=== PATIENT | female | born 1990 | race Two or more races ===

== ENCOUNTER 2024-11-22 05:27 | Emergency (ER) | payer MEDICAID, SELFPAY ==
[2024-11-22 05:27] VITALS: BMI 29.0
[2024-11-22 05:38] VITALS: BP 154/82; PULSE 104; RESP 18; TEMP 36.9; O2SAT 99
--- NOTE | 2024-11-22 05:48 | XR_ITS ---
Examination: OB Transvaginal ultrasound of the pelvis, complete Technique: Transvaginal sonographic images pelvis performed using mcbride scale imaging Exam date and time: November 22, 2024 at 0721 hrs. Indications: Pelvic pain this week Findings: Uterus 8.3 cm pole 0.8 cm corresponding to 6 week 6 day gestational age No cardiac motion. Right ovary 2.9 cm arterial flow Left ovary 3.2 cm arterial flow Impression: Intrauterine gestation corresponding to 6 week 6 day gestational age No cardiac activity, recommend short-term follow-up to exclude demise
--- NOTE | 2024-11-22 05:48 | PD.EDRME ---
Rapid Medical Screening Exam [facility] Arrival date/time: 11/22/24 05:27 33F at approximately 7 weeks and with no significant PMH presents to ED with 1 day of pelvic pain/cramping, but denies N/V, dysuria/hematuria, diarrhea, and vaginal bleeding. Chief Complaint: Abdominal Pain Vital signs: Vital Signs Temperature 98.4 F 11/22/24 05:38 Pulse Rate 104 H 11/22/24 05:38 Respiratory Rate 18 11/22/24 05:38 Blood Pressure 154/82 H 11/22/24 05:38 Pulse Oximetry (%) 99 11/22/24 05:38 Oxygen Delivery Method Room Air 11/22/24 05:38
[2024-11-22 06:20] LABS: Basophils # (Auto) 0.1 Thou/mm3 (0.0-0.2); Basophils % (Auto) 0 % (0-2.5); Eosinophils # (Auto) 0.1 Thou/mm3 (0.0-0.5); Eosinophils % (Auto) 1 % (0-10); Hematocrit 34.9 % (36.0-46.0); Hemoglobin 12.3 g/dL (12.0-16.0); Immature Granulocytes % (Auto) 0 % (0-0); Immature Granulocytes Auto 0.03 Thou/mm3 (0.00-0.00); Lymphocytes # (Auto) 3.9 Thou/mm3 (1.0-4.8); Lymphocytes % (Auto) 34 % (10-50); Mean Corpuscular HGB Conc 35.2 g/dl (31.0-37.0); Mean Corpuscular Hemoglobin 31.5 pg (25.0-35.0); Mean Corpuscular Volume 90 fL (80-100); Monocytes # (Auto) 0.9 Thou/mm3 (0.0-0.8); Monocytes % (Auto) 8 % (0-12); Neutrophils # (Auto) 6.3 Thou/mm3 (1.8-7.7); Neutrophils % (Auto) 56 % (37-80); Nucleated Red Blood Cell % 0 /100 WBC (0); Platelet Count 220 Thou/mm3 (140-440); RDW Standard Deviation 39.2 fL (36.4-46.3); White Blood Count 11.3 Thou/mm3 (3.6-11.0)
[2024-11-22 06:41] LABS: Alanine Aminotransferase 16 U/L (10-49); Albumin, Serum 4.1 gm/dL (3.5-5.0); Albumin/Globulin Ratio 1.5 (1.2-2.2); Alkaline Phosphatase 72 U/L (46-116); Anion Gap 7 (7-16); Aspartate Amino Transferase 12 U/L (0-34); BUN/Creatinine Ratio 17 Ratio (12-20); Bilirubin,Total 0.4 mg/dL (0.3-1.2); Blood Urea Nitrogen 12 mg/dL (9-23); Calcium 8.9 mg/dL (8.3-10.6); Calcium (Corrected) 8.9 mg/dL (8.5-10.1); Chloride 105 mMol/L (98-107); Creatinine (Component) 0.7 mg/dL (0.6-1.3); Estimated Creatinine Clearance 124.3 mL/min (>60); Globulin 2.8 gm/dL (2.3-3.5); Glucose 261 mg/dL (74-106); Osmolality,Calculated 284 (275-295); Potassium 3.9 mMol/L (3.4-5.1); Sodium 138 mMol/L (136-145); Total Protein 6.9 gm/dL (5.7-8.2); eGFR > 60 See Note
[2024-11-22 07:12] LABS: Collection Type, Urine Clean Catch
[2024-11-22 07:22] LABS: Beta HCG,Quantitative 28770 mIU/mL (<5.0)
[2024-11-22 07:29] LABS: Bacteria,Urine Rare; Bilirubin,Urine Negative (Negative); Blood,Urine Negative (Negative); Clarity,Urine Clear (Clear/Hazy); Color,Urine Lt-Yellow (Lt Yel-Yel); Glucose, Urine 4+ (Negative); Ketones,Urine Negative (Negative); Leukocyte Esterase,Urine Positive (Negative); Nitrite,Urine Negative (Negative); Protein,Urine Negative (Neg - Trace); RBC,Urine 7 /hpf (0-3); Specific Gravity,Urine 1.042 (1.001-1.035); Squamous Epithelial Cell,Urine 2 /hpf (0-5); Urobilinogen,Urine Negative mg/dL (0.0-1.0); WBC,Urine 11 /hpf (0-5)
[2024-11-22 07:50] VITALS: BP 120/79; PULSE 111; RESP 19; TEMP 36.7; O2SAT 96
--- NOTE | 2024-11-22 09:08 | EDNOTE_ITS ---
ED Female Urogenital RME/HPI General Chief complaint: Abdominal Pain Stated complaint: ABD PAIN 7 WEEKS PREG Time Seen by Provider: 11/22/24 06:16 Arrival date/time: 11/22/24 05:27 33F at approximately 7 weeks and with no significant PMH presents to ED with 1 day of pelvic pain/cramping, but denies N/V, dysuria/hematuria, diarrhea, and vaginal bleeding. Limitations: no limitations RME / HPI RME / HPI Narrative: 11/22/24 05:27 33F at approximately 7 weeks and with no significant PMH presents to ED with 1 day of pelvic pain/cramping, but denies N/V, dysuria/hematuria, diarrhea, and vaginal bleeding. Related Data Previous Rx's ?Medication ?Instructions ?Recorded cephalexin 500 mg capsule 500 mg PO BID 7 days #14 cap s 11/22/24 Allergies Allergy/AdvReac Type Severity Reaction Status Date / Time No Known Allergies Allergy Unknown Unverified 05/01/09 17:24 Review of Systems Review of Systems Systems Reviewed: All systems reviewed, normal except as documented Constitutional Constitutional: Reports system reviewed and no additional complaints, except as documented, Denies fever(s) and Denies headache(s) Eyes Eyes: Reports system reviewed and no additional complaints, except as documented and Denies blurry vision ENT Ears, Nose, Mouth, and Throat: Reports system reviewed and no additional complaints, except as documented, Denies headache(s), Denies nasal congestion and Denies nasal discharge Cardiovascular Cardiovascular: Reports system reviewed and no additional complaints, except as documented, Denies chest pain and Denies dyspnea Respiratory Respiratory: Reports system reviewed and no additional complaints, except as documented, Denies chest congestion, Denies cough and Denies dyspnea Gastrointestinal Gastrointestinal: Reports system reviewed and no additional complaints, except as documented and Denies abdominal pain Genitourinary Genitourinary: Reports system reviewed and no additional complaints, except as documented, Denies abnormal vaginal bleeding and Reports pelvic pain Integumentary/Breasts Skin/Breast: Reports system reviewed and no additional complaints, except as documented and Denies rash Neurologic Neurologic: Reports system reviewed and no additional complaints, except as documented, Reports as per HPI and Denies headache(s) Past Medical History Social History SMOKING STATUS: Never smoker ED Exam General Limitations: Present no limitations General appearance: Present alert and in no apparent distress Head Head exam: Present atraumatic Eye Eye exam: Present normal appearance, PERRL and EOMI ENT ENT exam: Present normal exam, normal oropharynx and mucous membranes moist Neck Neck exam: Present normal inspection, full ROM and trachea midline Chest Chest inspection: Present normal inspection and symmetric chest wall rise Respiratory Respiratory exam: Present normal lung sounds bilaterally Cardiovascular Cardiovascular exam: Present regular rate, normal rhythm and normal heart sounds Abdominal Exam Abdominal exam: Present soft and normal bowel sounds Extremities Exam Extremities exam: Present normal inspection and full ROM Back Exam Back exam: Present normal inspection and full ROM Neurological Exam Neurological exam: Present alert, oriented X3 and CN II-XII intact Psychiatric Psychiatric exam: Present normal affect and normal mood Skin Skin exam: Present warm, dry, intact and normal color Course Quality Measures none Orders Category Date Time Status US OB transvaginal Stat Exams 11/22/24 05:48 Taken Beta HCG,Quantitative Stat Lab 11/22/24 06:10 Completed CBC Stat Lab 11/22/24 06:10 Completed CMP [Comprehensive Metabolic Panel] Stat Lab 11/22/24 06:10 Completed UA [Urinalysis] Stat Lab 11/22/24 06:30 Completed Urine Culture Stat Lab 11/22/24 06:30 Received Vital Signs Vital signs: Vital Signs Temperature 98.4 F 11/22/24 05:38 Pulse Rate 104 H 11/22/24 05:38 Respiratory Rate 18 11/22/24 05:38 Blood Pressure 154/82 H 11/22/24 05:38 Pulse Oximetry (%) 99 11/22/24 05:38 Oxygen Delivery Method Room Air 11/22/24 05:38 O2 saturation 99% room air within normal limits Urogenital - Female MDM Narrative MDM Narrative:: 33F at approximately 7 weeks and with no significant PMH presents to ED with 1 day of pelvic pain/cramping, but denies N/V, dysuria/hematuria, diarrhea, and vaginal bleeding. On exam patient well-appearing patient does not appear ill or toxic in no acute distress On exam patient has soft nontender abdomen I reviewed the patient's lab work as well as ultrasound Patient's ultrasound is not very reassuring for a viable as the patient has no heart tones and patient is measuring approximately 7 weeks I did explain to the patient I cannot definitively say that she is having a miscarriage but she needs to have repeat lab work and ultrasound in 3 to 4 days Patient appears to have a mild UTI patient will treat with course of antibiotics in the meantime Patient data External records reviewed:: [facility] [place] previous records Clinical information provided by:: patient Social determinants that could affect healthcare access:: none Patient has the following chronic illnesses:: Diabetes How is presenting disease/condition affected by chronic disease/condition?: uneffected by Evaluation data The following diagnostics were reviewed and interpreted by me:: lab results and radiology exam(s) Lab and/or radiology exams considered but not ordered:: Labs radiology obtain Interpretation Summary: Reviewed by me Medications / Prescriptions Medications or Prescriptions considered but not ordered:: Given Medication administrations:: Given Consultations Consultation(s) initiated? (list below): No Diagnosis Urogenital Female Differential Diagnosis: urinary tract infection, bacterial vaginosis and cystitis Most likely diagnosis given after review of the tests above:: UTI threatened Admission Indicated Admission indicated?: not indicated Admission Request Was there a request for admission?: No Disposition Plan Disposition Plan: Discharge Discharge Attestation Discharge Attestation: The patient and all family members were given an opportunity to ask questions and understood the discharge instructions. Discharge instructions specifically effects, indications for sooner follow up or return to the emergency department, and the expected course of current diagnosis. Patient condition: Stable Discharge Plan Plan Patient Disposition: HOME (Self Care) Disposition Comment: Stable Prescriptions/Referrals Prescriptions/Med Rec: New cephalexin 500 mg capsule 500 mg PO BID 7 Days Qty: 14 0RF Referrals: Salazar Mcguire MD [Primary Care Provider] - 11/25/24 Problem List Clinical Impression: , threatened, UTI (urinary tract infection) Patient/Caregiver Discharge Instructions Additional Instructions: Please follow-up with [facility] as discussed for worsening symptoms return immediately Please have repeat lab work and ultrasound in 3 to 4 days Print Language: Puerto Rican Stand Alone Forms: Heather Award Info., Patient Portal Info Letter PA/TAYLOR Supervising Physician SAVANNAH/TAYLOR Supervising Physician: Dr [email or web address]
--- NOTE | 2024-11-22 10:22 | PRELIM_ITS ---
Obstetric ultrasound. November 22, 2024 0721 hours Clinical history: Cramping, no bleeding; 7 weeks Technique: Real-time ultrasound was performed using Duplex scanning including arterial inflow, venous outflow, color and spectral Doppler analysis of both ovaries. Findings: There is an intrauterine gestational sac with a single fetus of mean gestational age 6 weeks and 6 days (CRL= 0.8 cm). No cardiac activity is present at this time. The yolk sac is demonstrated. The uterus measures 8.3 x 5.3 x 5.8 cm and is retroverted. The right ovary measures 2.9 x 2.2 x 2.1 cm and is unremarkable. The left ovary measures 3.2 x 2.3 x 3 cm and is unremarkable. Arterial flow is demonstrated in both ovaries. There is no free fluid in the pelvis. Impression: Intrauterine gestational sac with a single fetus of mean gestational age 6 weeks and 6 days. No cardiac activity identified at this time. Findings diagnostic for failure. Discussion Details: Attempts are being made to contact the clinical team to make them aware of these findings Report Electronically Signed By: Tyler Mccarthy 11/22/2024 10:21:19 AM [EST]
== END 2024-11-22 09:20 | disposition home or self-care (01) ==
PROVIDERS: Physician Assistant; Emergency Provider Emergency Medicine; PCP Family Medicine
DX: O20.0 Threatened abortion (principal); O23.41 Unspecified infection of urinary tract in pregnancy, first trimester; N39.0 Urinary tract infection, site not specified; Z3A.01 Less than 8 weeks gestation of pregnancy
CPT/HCPCS: 36415; 76817; 80053; 81001; 84702; 85025; 87077; 87086; 87186; 99284

== ENCOUNTER 2025-08-05 04:50 | Emergency (ER) | payer MEDICAID, SELFPAY ==
[2025-08-05 04:51] VITALS: BMI 27.3
[2025-08-05 05:02] VITALS: BP 116/79; PULSE 108; RESP 18; TEMP 36.8; O2SAT 96
--- NOTE | 2025-08-05 05:32 | XR_ITS ---
Examination: Complete OB ultrasound, less than 14 weeks, transabdominal Date and time of exam: August 05, 2025, 0548 hours INDICATIONS: Pelvic cramping beginning today. Technique: Obstetrical ultrasound images less than 14 weeks performed via transabdominal imaging Findings: A normal shaped single intrauterine gestation is present in the uterus. CRL 3.2 cm corresponds to 10 weeks 1 day gestational age Cardiac motion 164 bpm Ultrasonographic survey of visible and placental structures unremarkable. Amniotic fluid volume appears appropriate for this estimated gestational age. Right ovary 2.9 cm arterial flow Left ovary 2.8 cm arterial flow IMPRESSION: Viable intrauterine gestation 10 weeks 1 day.
--- NOTE | 2025-08-05 05:33 | PD.EDRME ---
Rapid Medical Screening Exam RME Arrival date/time: 08/05/25 04:50 This is a case of 34-year-old female with no medical history came in in the emergency room due to pelvic pain no vaginal bleeding no vaginal discharge patient is 10 weeks 2 para 01 miscarriage Chief Complaint: Abdominal Pain Time Seen by Provider: 08/05/25 05:32 Vital signs: Vital Signs Temperature 98.3 F 08/05/25 05:02 Pulse Rate 108 H 08/05/25 05:02 Respiratory Rate 18 08/05/25 05:02 Blood Pressure 116/79 08/05/25 05:02 Pulse Oximetry (%) 96 08/05/25 05:02 Oxygen Delivery Method Room Air 08/05/25 05:02 Exam: Moderate tenderness suprapubic area no guarding no rebound no rigid Clinical Impression: Pelvic pain in
[2025-08-05 06:02] LABS: Collection Type, Urine Voided
[2025-08-05 06:17] LABS: Bilirubin,Urine Negative (Negative); Blood,Urine Negative (Negative); Clarity,Urine Clear (Clear/Hazy); Color,Urine Lt-Yellow (Lt Yel-Yel); Glucose, Urine 1+ (Negative); Ketones,Urine Negative (Negative); Leukocyte Esterase,Urine Negative (Negative); Nitrite,Urine Negative (Negative); PH,Urine 6.0 (5.0-7.0); Protein,Urine Negative (Neg - Trace); RBC,Urine 4 /hpf (0-3); Specific Gravity,Urine 1.020 (1.001-1.035); Squamous Epithelial Cell,Urine 3 /hpf (0-5); Urobilinogen,Urine Negative mg/dL (0.0-1.0); WBC,Urine 1 /hpf (0-5)
[2025-08-05 06:37] LABS: Basophils # (Auto) 0.0 Thou/mm3 (0.0-0.2); Basophils % (Auto) 0 % (0-2.5); Eosinophils # (Auto) 0.1 Thou/mm3 (0.0-0.5); Eosinophils % (Auto) 1 % (0-10); Hematocrit 32.9 % (36.0-46.0); Hemoglobin 11.4 g/dL (12.0-16.0); Immature Granulocytes Auto 0.03 Thou/mm3 (0.00-0.00); Lymphocytes # (Auto) 4.1 Thou/mm3 (1.0-4.8); Lymphocytes % (Auto) 40 % (10-50); Mean Corpuscular HGB Conc 34.7 g/dl (31.0-37.0); Mean Corpuscular Hemoglobin 32.0 pg (25.0-35.0); Mean Corpuscular Volume 92 fL (80-100); Monocytes # (Auto) 0.9 Thou/mm3 (0.0-0.8); Monocytes % (Auto) 9 % (0-12); Neutrophils # (Auto) 5.1 Thou/mm3 (1.8-7.7); Neutrophils % (Auto) 50 % (37-80); Nucleated Red Blood Cell # 0.00 Thou/mm3 (0.00-0.00); Nucleated Red Blood Cell % 0 /100 WBC (0); Platelet Count 197 Thou/mm3 (140-440); RDW Standard Deviation 40.3 fL (36.4-46.3); Red Blood Count 3.56 Miln/mm3 (4.00-5.20); White Blood Count 10.2 Thou/mm3 (3.6-11.0)
[2025-08-05 07:04] LABS: Alanine Aminotransferase 11 U/L (10-49); Albumin, Serum 4.0 gm/dL (3.5-5.0); Albumin/Globulin Ratio 1.5 (1.2-2.2); Alkaline Phosphatase 47 U/L (46-116); Anion Gap 10 (7-16); Aspartate Amino Transferase 14 U/L (0-34); BUN/Creatinine Ratio 14 Ratio (12-20); Bilirubin,Total 0.3 mg/dL (0.3-1.2); Blood Urea Nitrogen 7 mg/dL (9-23); Calcium 8.6 mg/dL (8.3-10.6); Calcium (Corrected) 8.6 mg/dL (8.5-10.1); Carbon Dioxide 22.8 mMol/L (20.0-31.0); Chloride 107 mMol/L (98-107); Creatinine (Component) 0.5 mg/dL (0.6-1.3); Estimated Creatinine Clearance 173.6 mL/min (>60); Globulin 2.7 gm/dL (2.3-3.5); Glucose 134 mg/dL (74-106); Osmolality,Calculated 279 (275-295); Potassium 3.9 mMol/L (3.4-5.1); Sodium 140 mMol/L (136-145); Total Protein 6.7 gm/dL (5.7-8.2); eGFR > 60 See Note
[2025-08-05 07:36] LABS: Beta HCG,Quantitative 50845 mIU/mL (<5.0)
--- NOTE | 2025-08-20 06:54 | EDNOTE_ITS ---
ED Female Urogenital RME/HPI General Chief complaint: Abdominal Pain Stated complaint: LOWER ABD CRAMPING, 10 WKS Time Seen by Provider: 08/05/25 05:32 Arrival date/time: 08/05/25 04:50 34-year-old female presents to the emergency department today stating she been having abdominal cramping/pelvic cramping patient reports being approximately 10 weeks patient reports no vaginal bleeding Limitations: no limitations RME / HPI RME / HPI Narrative: 08/05/25 04:50 This is a case of 34-year-old female with no medical history came in in the emergency room due to pelvic pain no vaginal bleeding no vaginal discharge patient is 10 weeks 2 para 01 miscarriage Exam: Moderate tenderness suprapubic area no guarding no rebound no rigid Impression: Pelvic pain in Related Data Allergies Allergy/AdvReac Type Severity Reaction Status Date / Time No Known Allergies Allergy Unknown Verified 08/05/25 04:51 Review of Systems Review of Systems Systems Reviewed: All systems reviewed, normal except as documented Constitutional Constitutional: Reports system reviewed and no additional complaints, except as documented, Denies fever(s) and Denies headache(s) Eyes Eyes: Reports system reviewed and no additional complaints, except as documented and Denies blurry vision ENT Ears, Nose, Mouth, and Throat: Reports system reviewed and no additional complaints, except as documented, Denies headache(s), Denies nasal congestion and Denies nasal discharge Cardiovascular Cardiovascular: Reports system reviewed and no additional complaints, except as documented, Denies chest pain and Denies dyspnea Respiratory Respiratory: Reports system reviewed and no additional complaints, except as documented, Denies chest congestion, Denies cough and Denies dyspnea Gastrointestinal Gastrointestinal: Reports system reviewed and no additional complaints, except as documented and Denies abdominal pain Genitourinary Genitourinary: Reports system reviewed and no additional complaints, except as documented, Denies dysmenorrhea, Denies dysuria and Reports pelvic pain Integumentary/Breasts Skin/Breast: Reports system reviewed and no additional complaints, except as documented and Denies rash Neurologic Neurologic: Reports system reviewed and no additional complaints, except as documented, Reports as per HPI and Denies headache(s) Past Medical History Social History SMOKING STATUS: Never smoker ED Exam General Limitations: Present no limitations General appearance: Present alert and in no apparent distress Head Head exam: Present atraumatic, normocephalic and normal inspection Eye Eye exam: Present normal appearance, PERRL and EOMI; Absent conjunctival injection ENT ENT exam: Present normal exam, normal oropharynx and mucous membranes moist Neck Neck exam: Present normal inspection, full ROM and trachea midline Chest Chest inspection: Present normal inspection and symmetric chest wall rise Respiratory Respiratory exam: Present normal lung sounds bilaterally; Absent respiratory distress Cardiovascular Cardiovascular exam: Present regular rate, normal rhythm and normal heart sounds Abdominal Exam Abdominal exam: Present soft and normal bowel sounds; Absent distention, tenderness, guarding, rebound or rigidity Extremities Exam Extremities exam: Present normal inspection and full ROM Back Exam Back exam: Present normal inspection and full ROM Neurological Exam Neurological exam: Present alert, oriented X3 and CN II-XII intact Psychiatric Psychiatric exam: Present normal affect and normal mood Skin Skin exam: Present warm, dry, intact and normal color Course Quality Measures none Orders Category Date Time Status US OB <= 14 weeks fetus Stat Exams 08/05/25 05:32 Completed Antibody Identification Stat Lab 08/05/25 06:19 Completed Beta HCG,Quantitative Stat Lab 08/05/25 06:19 Completed CBC Stat Lab 08/05/25 06:19 Completed CMP [Comprehensive Metabolic Panel] Stat Lab 08/05/25 06:19 Completed Type and Screen Stat Lab 08/05/25 06:19 Completed Urinalysis Stat Lab 08/05/25 05:35 Completed Vital Signs Vital signs: Vital Signs Temperature 98.3 F 08/05/25 05:02 Pulse Rate 108 H 08/05/25 05:02 Respiratory Rate 18 08/05/25 05:02 Blood Pressure 116/79 08/05/25 05:02 Pulse Oximetry (%) 96 08/05/25 05:02 Oxygen Delivery Method Room Air 08/05/25 05:02 O2 saturation 96% on room air within normal limits Urogenital - Female MDM Narrative MDM Narrative:: 34-year-old female presents to the emergency department today stating she been having abdominal cramping/pelvic cramping patient reports being approximately 10 weeks patient reports no vaginal bleeding Clinically patient well-appearing does not appear ill or toxic Lab work and imaging reviewed by me no acute emergent findings noted patient appears to have viable at this time Patient discharged home in no distress to follow-up with primary care doctor in the next 24 to 48 hours and for any worsening symptoms to return to the ER immediately Patient data External records reviewed:: [facility] previous records Clinical information provided by:: patient Social determinants that could affect healthcare access:: none Patient has the following chronic illnesses:: None How is presenting disease/condition affected by chronic disease/condition?: no chronic disease Evaluation data The following diagnostics were reviewed and interpreted by me:: lab results and radiology exam(s) Lab and/or radiology exams considered but not ordered:: Labs radiology obtained Interpretation Summary: Reviewed by me Medications / Prescriptions Medications or Prescriptions considered but not ordered:: No meds Medication administrations:: No meds Consultations Consultation(s) initiated? (list below): No Diagnosis Urogenital Female Differential Diagnosis: urinary tract infection, cystitis and other (Dysfunctional uterine bleeding, pelvic pain ) Most likely diagnosis given after review of the tests above:: Pelvic pain Admission Indicated Admission indicated?: not indicated Admission Request Was there a request for admission?: No Disposition Plan Disposition Plan: Discharge Discharge Attestation Discharge Attestation: The patient and all family members were given an opportunity to ask questions and understood the discharge instructions. Discharge instructions specifically effects, indications for sooner follow up or return to the emergency department, and the expected course of current diagnosis. Patient condition: Stable Discharge Plan Plan Patient Disposition: HOME (Self Care) Discharge Disposition comment: Stable Problem List Clinical Impression: Abdominal cramping affecting Patient/Caregiver Discharge Instructions Education Materials: Medicine for Pain Additional Instructions: Please follow up with your primary care doctor in the next 24-48hrs for any worsening symptoms return here immediately Print Language: Beninese Stand Alone Forms: Heather Award Info., Patient Portal Info Letter SAVANNAH/TAYLOR Supervising Physician SAVANNAH/TAYLOR Supervising Physician: Dr [email or web address]
== END 2025-08-05 17:31 | disposition home or self-care (01) ==
LOC: SERX 09:12
PROVIDERS: Nurse Practitioner Family; Emergency Provider Nurse Practitioner Primary Care; PCP Obstetrics & Gynecology
DX: O26.891 Other specified pregnancy related conditions, first trimester (principal); Z3A.10 10 weeks gestation of pregnancy; R10.20 Pelvic and perineal pain unspecified side
CPT/HCPCS: 36415; 76801; 80053; 81001; 84702; 85025; 86850; 86870; 86900; 86901; 99283